=== PATIENT | female | born 1975 | race Caucasian/White ===

== ENCOUNTER 2023-07-26 21:01 | Emergency (ER) | payer MEDICAID ==
[~2023-07-26] VITALS: Ht 170.2 cm; Wt 88.0 kg
[~2023-07-26 21:01] MED LIST: GLIM2TAB96 PO; METF-713 PO; PIOG-4 PO
[2023-07-26 21:09] VITALS: BP 146/89; PULSE 108; RESP 18; TEMP 97.4; O2SAT 99
[2023-07-26] MEDS ORDERED: DICL100G32 TP (22:15)
[2023-07-26] MEDS ORDERED: KETOROLAC 30 MG/ML VIAL IM ONE (22:15)
[2023-07-26] MEDS ORDERED: NAPR-1704 PO (22:15)
== END 2023-07-26 22:25 | disposition home or self-care (01) ==
LOC: MED 21:01
DX: M77.31 Calcaneal spur, right foot (principal); Z79.899 Other long term (current) drug therapy
CPT/HCPCS: 73630; 96372; 99283; J1885

== ENCOUNTER 2023-11-28 20:29 | Emergency (ER) | payer MEDICAID ==
[~2023-11-28] VITALS: Ht 170.2 cm; Wt 89.8 kg
[~2023-11-28 20:29] MED LIST changes: +DICL100G32 TP; +GLIM-24 PO; -GLIM2TAB96 PO; +NAPR-1704 PO
[2023-11-28 20:35] VITALS: BP 143/89; PULSE 98; RESP 16; TEMP 97.9; O2SAT 97
[2023-11-28 22:32] LABS: FLU A ANTIGEN negative (NEGATIVE); FLU B ANTIGEN NEGATIVE (NEGATIVE)
[2023-11-28] MEDS: KETOROLAC 30 MG/ML VIAL IM ONE (23:14)
[2023-11-28] MEDS ORDERED: NAPR-54 PO (23:45)
[2023-11-28] MEDS ORDERED: AMOX500C25 PO (23:45)
[2023-11-28] MEDS ORDERED: ROBAC PO (23:45)
== END 2023-11-28 23:58 | disposition home or self-care (01) ==
LOC: MED 20:29
DX: H66.91 Otitis media, unspecified, right ear (principal); Z20.822 Contact with and (suspected) exposure to COVID-19; R07.0 Pain in throat; Z79.899 Other long term (current) drug therapy
CPT/HCPCS: 71045; 87081; 87426; 87804; 96372; 99284; J1885